=== PATIENT | female | born 1975 | race Caucasian/White ===

== ENCOUNTER → 2020-01-07 14:17 | Outpatient (BNVA) | payer OTHER, SELFPAY | PROVIDERS: Family Provider Nurse Practitioner Family; PCP Family Medicine; Visit Provider Nurse Practitioner Family | DX: Z11.59 Encounter for screening for other viral diseases (principal) | CPT/HCPCS: 87635 ==

== ENCOUNTER 2020-05-12 10:46 | Outpatient (CLI) | payer BC, SELFPAY ==
--- NOTE | 2020-05-12 10:54 | MM_ITS ---
WS: [id number] BILATERAL DIGITAL DIAGNOSTIC MAMMOGRAM MAMMOGRAPHY WITH CAD CLINICAL INFORMATION: RIGHT AXILLARY NODULE;FIBROCYSTIC BREAST. Right breast lump. COMPARISON: None. TECHNIQUE: Bilateral CC, MLO, and ML views. FINDINGS: The breasts are composed of heterogeneous fibroglandular density, which can limit the detection of sm all underlying mass lesions. A few punctate calcifications. A few lymph nodes in the right axilla kamryn r the palpable marker. Ultrasound is pending. Ovoid asymmetric density outer right breast best seen on the cc view measuring 9 mm. Recommend spot c ompression views and ultrasound for further evaluation. No comparisons available. ULTRASOUND BREAST RIGHT TECHNIQUE: Ultrasound right breast focused area of concern. CLINICAL INFORMATION: RIGHT AXILLARY NODULE;FIBROCYSTIC BREAST COMPARISON: None. FINDINGS: Ultrasound right breast in the area of concern right axilla. A few lymph nodes with preserved fatty h ilum the largest measuring 1.5 x 1.8 cm. No cortical thickening. These have a normal appearance. No o ther suspicious abnormalities. MM/[place] [id number] IMPRESSION: BI-RADS: 0-Incomplete: Need additional imaging evaluation FOLLOW UP: Need Additional Imaging RECOMMEND SPOT COMPRESSION VIEWS OF THE 8 MM ASYMMETRIC DENSITY RIGHT BREAST AN D ULTRASOUND IF PERSISTENT.
== END 2020-05-12 10:47 | disposition home or self-care (01) ==
LOC: RADSHAW 10:51
PROVIDERS: PCP Nurse Practitioner Family; Visit Provider Nurse Practitioner Family
DX: N60.19 Diffuse cystic mastopathy of unspecified breast (principal); N63.11 Unspecified lump in the right breast, upper outer quadrant
CPT/HCPCS: 76642; 77066

== ENCOUNTER 2020-06-01 14:26 | Outpatient (CLI) | payer BC, SELFPAY ==
--- NOTE | 2020-06-01 14:28 | US_ITS ---
WS: [id number] RIGHT DIGITAL MAMMOGRAPHY WITH CAD CLINICAL INFORMATION: ASYMMETRIC DENSITY RT BREAST COMPARISON: 2020 TECHNIQUE: 3 views of the right breast were obtained. FINDINGS: Scattered fibroglandular densities of the right breast. Previously described ovoid asymmetry outer ri ght breast persistent on spot compression views. Ultrasound is pending. ULTRASOUND BREAST RIGHT TECHNIQUE: Ultrasound right breast focused area of concern. CLINICAL INFORMATION: ASYMMETRIC DENSITY RT BREAST COMPARISON: None. FINDINGS: Ultrasound right breast at the 9:00-1100 position. No evidence of underlying mass or lesion. No cysti c or solid lesions. Fibrocystic changes. No suspicious findings. Recommend return to annual screening mammography. US/US breast RT limited* [id number] IMPRESSION: BI-RADS: 2-Benign FOLLOW UP: 1 Year Follow-up Recommend return to annual screening mammography.
== END 2020-06-01 14:27 | disposition home or self-care (01) ==
LOC: RADSHAW 14:27
PROVIDERS: PCP Nurse Practitioner Family; Visit Provider Nurse Practitioner Family
DX: N64.89 Other specified disorders of breast (principal)
CPT/HCPCS: 76642; 77065

== ENCOUNTER 2024-08-10 10:01 | Outpatient (CLI) | payer BC, SELFPAY ==
--- NOTE | 2024-08-10 10:00 | MM_ITS ---
WS: [id number] BILATERAL 3D TOMOSYNTHESIS DIGITAL SCREENING MAMMOGRAPHY WITH CAD CLINICAL INFORMATION: SCREENING HISTORY: Screening mammogram. No current complaints. COMPARISON: 2020 TECHNIQUE: Bilateral CC and MLO views. FINDINGS: Scattered fibroglandular densities bilaterally. No suspicious focal mass, asymmetry, calcifications, or architectural distortion. No evidence of malignancy. Few tiny incidental punctate calcifications LEFT breast. MM/MM scr BI tomosynthesis [id number] IMPRESSION: DENSITY: There are scattered areas of fibroglandular density. BI-RADS: 2 - Benign. FOLLOW UP: 1 Year Follow-up Recommend return to annual screening mammography.
== END 2024-08-10 10:02 | disposition home or self-care (01) ==
LOC: MOBLMAM 10:04
PROVIDERS: PCP Nurse Practitioner Family; Visit Provider Nurse Practitioner Family
DX: Z12.31 Encounter for screening mammogram for malignant neoplasm of breast (principal); R92.323 Mammographic fibroglandular density, bilateral breasts
CPT/HCPCS: 77063; 77067